=== PATIENT | female | born 1970 | race Caucasian/White ===

== ENCOUNTER 2017-03-04 12:22 | Emergency (ER) | payer OTHER ==
--- NOTE | 2017-03-04 12:47 | Emergency Department Record ---
History of Present Illness - General Chief Complaint: Shortness of breath Stated Complaint: ROSANGELA,COUGH Time Seen by Provider: 03/04/17 12:47 Source: Patient Mode of Arrival: Ambulatory Limitations: No limitations - History of Present Illness Initial Comments: The patient is here due to a one day hx of cough, congestion, and SOB for about 24 hours. She does have some upper chest pain with deep breaths and coughing. There is no reported fever, sputum production, AP, or ST. The patient just recently started up again with smoking but denies any other recent changes in her health. MD Complaint: Cough, Shortness of breath Onset/Timin -: Days(s) Improves With: Nothing Worsens With: Movement Associated Symptoms: Cough, Pain with inspiration Treatments Prior to Arrival: Bronchodilator - Related Data Home Oxygen Therapy: No Home Medications Medication Instructions Recorded Confirmed Last Taken Duloxetine HCl [Duloxetine HCl] 1 tab PO DAILY 02/01/16 03/04/17 03/03/17 Hydrocodone/Acetaminophen 5 mg PO DAILY 02/01/16 03/04/17 03/03/17 [Hydrocodon-Acetaminophen 5-325] Meloxicam [Meloxicam] 1 tab PO DAILY 02/01/16 03/04/17 03/03/17 Previous Rx's Medication Instructions Recorded Albuterol Sulfate [Proair Hfa] 2 puff IH QID PRN #1 inhaler 03/04/17 Levofloxacin [Levaquin] 750 mg PO DAILY #5 tab 03/04/17 Prednisone [Prednisone 20Mg] 40 mg PO DAILY #10 tab 03/04/17 Allergies Allergy/AdvReac Type Severity Reaction Status Date / Time No Known Drug Allergies Allergy Verified 03/04/17 12:32 Travel Screening - Travel/Exposure Within Last 30 Days Have you traveled within the last 30 days?: No Review of Systems Constitutional: Denies: Chills, Fever Eyes: Denies: Eye discharge ENT: Denies: Congestion Respiratory: Denies: Cough, Dyspnea Past Medical History - SOCIAL HISTORY Smoking Status: Current every day smoker Alcohol Use: None Drug Use: None - RESPIRATORY Hx Respiratory Disorders: No - CARDIOVASCULAR Hx Cardio Disorders: No - NEURO Hx Neuro Disorders: No - GI Hx GI Disorders: Yes Hx Hiatal Hernia: Yes - Hx Genitourinary Disorders: No - ENDOCRINE Hx Endocrine Disorders: Yes Hx Diabetes: No Hx Thyroid Disease: Yes - MUSCULOSKELETAL Hx Musculoskeletal Disorders: Yes Hx Arthritis: Yes - PSYCH Hx Psych Problems: Yes Hx Anxiety: Yes Hx Depression: Yes - HEMATOLOGY/ONCOLOGY Hx Hematology/Oncology Disorders: No Family Medical History Any Significant Family History?: No Physical Exam - General General Appearance: Alert, Oriented x3, Cooperative, No acute distress - Head Head exam: Atraumatic, Normocephalic, Normal inspection - Eye Eye exam: Normal appearance, PERRL - ENT Throat exam: Normal inspection. negative: Tonsillar erythema, Tonsillar exudate - Neck Neck exam: Normal inspection, Full ROM. negative: Tenderness - Respiratory Respiratory exam: Decreased breath sounds. negative: Normal lung sounds bilaterally, Chest wall tenderness, Respiratory distress, Rhonchi, Stridor, Wheezes - Cardiovascular Cardiovascular Exam: Regular rate, Normal rhythm, Normal heart sounds - GI/Abdominal GI/Abdominal exam: Soft, Normal bowel sounds. negative: Tenderness - Extremities Extremities exam: Normal inspection, Full ROM, Normal capillary refill. negative: Tenderness - Neurological Neurological exam: Alert, Normal gait. negative: Abnormal gait, Motor sensory deficit Course Vital Signs 03/04/17 12:24 Temperature 98.2 F Pulse Rate 91 H Respiratory 20 Rate Blood Pressure 118/77 Pulse Ox 97 - Reevaluation(s) Reevaluation #1: The patient is doing much better at this time. She is now moving air much better on auschultation. Her coughing seems to be worsening at times but she denies any CP. 03/04/17 14:07 Reevaluation #2: The patient is resting comfortably and states her ROSANGELA is improved. I did recommend hospital admission due to the bilateral pneumonia and intermittent wheezing on exam. I did discuss the risks of refusing the admission which include worsening pneumonia, ARDS, Respiratory Failure, Stroke, Disability and . The patient understands the risks and accepts the risks and understands we cannot be held liable for NOT admitting the patient to the hospital. Presently the patient has proper decision making capacity and fully understands her options. She is instructed to see her PCP tomorrow for recheck. 03/04/17 15:08 Medical Decision Making - Data Complexity MDM Data: Labs Ordered and/or Reviewed, X-Ray Ordered and/or Reviewed, EKG Ordered and/or Reviewed - Lab Data Result diagrams: 03/04/17 13:19 07/26/17 13:19 - EKG Data -: EKG Interpreted by Sd EKG: No Acute Changes, Normal EKG - Radiology Data Radiology results: Report reviewed (CXR: Bilateral perihilar infiltrates with COPD and possible small effusions. Chest CT: Bilateral pneumonia but no PE or Dissection.) Disposition Disposition: Discharge Clinical Impression: Pneumonia Qualifiers: Pneumonia type: due to unspecified organism Laterality: bilateral Lung location : unspecified part of lung Qualified Code(s): J18.9 - Pneumonia, unspecified organism Disposition: Against Medical Advice Condition: (1) Good Instructions: Pneumonitis (ED) Additional Instructions: Please use your inhaller and take your Abx as directed. Please continue the Prednisone tomorrow. Please see your PCP tomorrow for recheck. Return to the ER for any persistent or worsening cough, or any fever, or worsening shortness of breath. Prescriptions: Albuterol Sulfate [Proair Hfa] 2 puff IH QID PRN #1 inhaler PRN Reason: Cough And Difficulty Breathing Levofloxacin [Levaquin] 750 mg PO DAILY #5 tab Prednisone [Prednisone 20Mg] 40 mg PO DAILY #10 tab Forms: Patient Portal Access Time of Disposition: 15:14 Quality - Quality Measures Quality Measures: N/A - Blood Pressure Screening Blood Pressure Classification: Normal BP Reading Systolic Measurement: 119 Diastolic Measurement: 69 Screening for High Blood Pressure: < Normal BP, F/U Not Required > [G8783] Normal BP Follow-up Interventions: No follow-up required
[2017-03-04] MEDS ORDERED: IPRATROPIUM/ALBUTEROL (0.5MG/3MG) NEB INH ONE (12:53)
[2017-03-04] MEDS ORDERED: METHYLPREDNISOLONE PF 125MG/VIAL IVP ONE (12:56)
[2017-03-04 13:25] LABS: HEMATOCRIT 43.8 % (35.0-47.0); HEMOGLOBIN 14.5 gm/dl (11.6-16.0); MEAN CELL VOLUME 92.2 fl (81-97); MEAN CORPUSCULAR HEMOGLOBIN 30.5 pg (27-33); MEAN CORPUSCULAR HGB CONC 33.1 g/dl (32-36); PLATELET COUNT 264 K/uL (130-400); RED BLOOD COUNT 4.75 M/uL (3.80-5.40); RED CELL DISTRIBUTION WIDTH 12.9 % (11.5-14.5)
[2017-03-04 13:41] LABS: WHITE BLOOD COUNT W/O DIFF 20.2 K/uL (4.2-12.2)
[2017-03-04 13:42] LABS: INR 0.95; PARTIAL THROMBOPLASTIN TIME 28.9 SECONDS (24.5-39.1); PROTHROMBIN TIME (PATIENT) 10.3 SECONDS (9.5-12.1)
[2017-03-04 13:44] LABS: ANION GAP 11.9 (7-16); BLOOD UREA NITROGEN 13 mg/dL (7-17); CARBON DIOXIDE 24.1 mmol/L (22-30); CREATINE PHOSPHOKINASE 97 U/L (30-135); CREATININE 0.7 mg/dL (0.52-1.04); EST GLOMERULAR FILTRATION RATE > 60 ml/min; GLUCOSE,RANDOM 111 mg/dL (70-110)
[2017-03-04 13:45] LABS: D-DIMER 0.78 mg/L FEU (0-0.59)
[2017-03-04 13:56] LABS: CKMB 0.8 ug/L (0-6)
[2017-03-04] MEDS ORDERED: CEFTRIAXONE SODIUM 1 GM in 0.9 % SODIUM CHLORIDE 100ML 100 ML IVPB ONE (14:02)
[2017-03-04 14:16] LABS: TROPONIN I < 0.012 ng/mL (0.00-0.034)
[2017-03-04] MEDS ORDERED: ALBUTEROL SULFATE (0.083%) 2.5 MG/3 ML NEB INH ONE (14:40)
[2017-03-04] MEDS ORDERED: AZITHROMYCIN 500 MG in 0.9 % SODIUM CHLORIDE 250ML 250 ML IVPB ONE (14:53)
--- NOTE | 2017-03-05 08:25 | RADIOLOGY REPORT ---
EXAM: CHEST, TWO VIEWS HISTORY: COUGH. TECHNIQUE: Frontal and lateral views of the chest were obtained. Comparison: None. FINDINGS: The heart size is normal. There is underlying COPD. Patchy perihilar air space opacities worrisome for pneumonia. Small bibasilar effusions. No pneumothorax. IMPRESSION: COPD. PERIHILAR PNEUMONIA. SMALL BILATERAL EFFUSIONS. RECOMMEND FOLLOW-UP TO INSURE RESOLUTION. JOB NUMBER: [id number] MTDD
--- NOTE | 2017-03-05 08:31 | CT ANGIOGRAM REPORT ---
EXAM: CTA OF THE CHEST HISTORY: DYSPNEA. TECHNIQUE: CTA of the chest was performed following IV administration of 91 ml of Omnipaque 350 contrast. Axial images are obtained with coronal and sagittal MIP reconstructions. Comparison: None. FINDINGS: Bilateral breast prostheses are noted. The mediastinal vasculature enhances normally. Three is no intraluminal filling defect to suggest pulmonary embolus. Negative for thoracic aortic aneurysm or dissection. Small hiatal hernia. Limited evaluation of the upper abdomen is otherwise unremarkable. The heart and pericardium are unremarkable. Borderline enlarged hilar nodes bilaterally as well as a borderline enlarged subcarinal lymph node. These may be reactive. No pneumothorax. Extensive air space opacities bilaterally likely reflecting bilateral pneumonia. Findings most severely effect the upper lobes. IMPRESSION: 1. NEGATIVE FOR PULMONARY EMBOLUS, THORACIC AORTIC ANEURYSM, OR DISSECTION. 2. EXTENSIVE BILATERAL AIR SPACE OPACITIES, DESCRIBED ON CHEST X-RAY, CONSISTENT WITH PNEUMONIA. RECOMMEND FOLLOW-UP TO INSURE RESOLUTION. 3. SMALL BILATERAL EFFUSIONS. PROBABLE REACTIVE MEDIASTINAL AND HILAR ADENOPATHY. 4. SMALL HIATAL HERNIA. JOB NUMBER: [id number] [facility]
== END 2017-03-04 15:31 | disposition left against medical advice (07) ==
LOC: ER 12:22
DX: J18.9 Pneumonia, unspecified organism (principal); J44.9 Chronic obstructive pulmonary disease, unspecified; F17.210 Nicotine dependence, cigarettes, uncomplicated
CPT/HCPCS: 99284 ×2; 96374; 96375; 82550; 85730; 85610; 82553; 84484; 80048; 85379; 85027; 71020; 71275; 94640 ×2; 93005; 93010; Q9967; J2930; J7613

== ENCOUNTER 2017-03-06 14:57 | Emergency (ER) | payer OTHER ==
[2017-03-06] MEDS: IPRATROPIUM/ALBUTEROL (0.5MG/3MG) NEB INH ONE (15:15)
--- NOTE | 2017-03-06 15:39 | Emergency Department Record ---
History of Present Illness - General Chief Complaint: Difficulty Breathing Stated Complaint: ROSANGELA Time Seen by Provider: 03/06/17 15:16 Source: Patient Mode of Arrival: Ambulatory Limitations: No limitations - History of Present Illness Initial Comments: The patient is here due to a 3-4 day hx of cough, congestion and SOB. She was in the ER 2 days ago and was diagnosed with pneumonia and did leave AMA due to not wanting to be admitted. She now has a nebulizer at home and is on Prednisone and Levaquin but states she still feels SOB and did have a temp last night and this AM of about 100 in the ear. The patient did see her PCP yesterday and was sent home with the nebulizer. MD Complaint: Cough Onset/Timin -: Days(s) Consistency: Constant Improves With: Bronchodilators Worsens With: Exertion Associated Symptoms: Cough, Diaphoresis, Fever, Sputum production - Related Data Home Medications Medication Instructions Recorded Confirmed Last Taken Duloxetine HCl [Duloxetine HCl] 1 tab PO DAILY 02/01/16 03/06/17 03/06/17 Hydrocodone/Acetaminophen 5 mg PO DAILY 02/01/16 03/06/17 03/06/17 [Hydrocodon-Acetaminophen 5-325] Meloxicam [Meloxicam] 1 tab PO DAILY 02/01/16 03/06/17 03/06/17 Previous Rx's Medication Instructions Recorded Albuterol Sulfate [Proair Hfa] 2 puff IH QID PRN #1 inhaler 03/04/17 Levofloxacin [Levaquin] 750 mg PO DAILY #5 tab 03/04/17 Prednisone [Prednisone 20Mg] 40 mg PO DAILY #10 tab 03/04/17 Ipratropium/Albuterol [Duoneb] 3 ml IH Q4H #20 ampul.neb. 03/06/17 Allergies Allergy/AdvReac Type Severity Reaction Status Date / Time No Known Drug Allergies Allergy Verified 03/04/17 12:32 Travel Screening - Travel/Exposure Within Last 30 Days Have you traveled within the last 30 days?: No - Travel/Exposure Within Last Year Have you traveled outside the [place] in the last year?: No - Additonal Travel Details Have you been exposed to anyone with a communicable illness?: No - Travel Symptoms Symptom Screening: None Review of Systems Constitutional: Reports: Chills, Fever, Malaise Eyes: Denies: Eye discharge ENT: Reports: Congestion Respiratory: Reports: Cough, Dyspnea Cardiovascular: Denies: Arrhythmia, Chest pain Endocrine: Reports: Fatigue Past Medical History - SOCIAL HISTORY Smoking Status: Former smoker Alcohol Use: None Drug Use: None - RESPIRATORY Hx Respiratory Disorders: No - CARDIOVASCULAR Hx Cardio Disorders: No - NEURO Hx Neuro Disorders: No - GI Hx GI Disorders: Yes Hx Hiatal Hernia: Yes - Hx Genitourinary Disorders: No - ENDOCRINE Hx Endocrine Disorders: Yes Hx Diabetes: No Hx Thyroid Disease: Yes - MUSCULOSKELETAL Hx Musculoskeletal Disorders: Yes Hx Arthritis: Yes - PSYCH Hx Psych Problems: Yes Hx Anxiety: Yes Hx Depression: Yes - HEMATOLOGY/ONCOLOGY Hx Hematology/Oncology Disorders: No Family Medical History Any Significant Family History?: No Physical Exam - General General Appearance: Alert, Oriented x3, Cooperative, No acute distress - Head Head exam: Atraumatic, Normocephalic, Normal inspection - Eye Eye exam: Normal appearance, PERRL - ENT Throat exam: Normal inspection. negative: Tonsillar erythema, Tonsillar exudate - Neck Neck exam: Normal inspection, Full ROM. negative: Tenderness - Respiratory Respiratory exam: Normal lung sounds bilaterally. negative: Decreased breath sounds, Respiratory distress, Rhonchi, Wheezes - Cardiovascular Cardiovascular Exam: Regular rate, Normal rhythm, Normal heart sounds - GI/Abdominal GI/Abdominal exam: Soft, Normal bowel sounds. negative: Tenderness - Extremities Extremities exam: Normal inspection, Full ROM, Normal capillary refill. negative: Tenderness - Neurological Neurological exam: Alert, Normal gait. negative: Abnormal gait, Motor sensory deficit Course Vital Signs 03/06/17 03/06/17 15:00 15:18 Temperature 98.3 F Pulse Rate 78 88 Respiratory 24 18 Rate Blood Pressure 111/72 Pulse Ox 95 95 - Reevaluation(s) Reevaluation #1: The patient is doing much better at this time. She denies any SOB or ROSANGELA and her cough is improving. The patient's WBC is improved but her CXR is very slightly worse per Rad. On exam the patient's lungs are clear and she did not have any fever on recheck. I did discuss the case with the patient's PCP who saw her yesterday and she can also see her on Thursday. The patient is to continue her present course and to F/U with her PCP on Thursday as planned. 03/06/17 16:40 Medical Decision Making - Data Complexity MDM Data: Labs Ordered and/or Reviewed, X-Ray Ordered and/or Reviewed - Lab Data Result diagrams: 03/06/17 15:59 03/06/17 15:59 - Radiology Data Radiology results: Report reviewed (CXR: Slightly worsening of her bilateral pneumonia.) Disposition Disposition: Discharge Clinical Impression: Pneumonia Qualifiers: Pneumonia type: due to unspecified organism Laterality: unspecified laterality Lung location: unspecified part of lung Qualified Code(s): J18.9 - Pneumonia, unspecified organism Disposition: Home, Self-Care Condition: (1) Good Instructions: Dyspnea (ED) Additional Instructions: Please continue your medicines and use the Duoneb treatments as directed. Please see your PCP on Thursday as planned. Return to the ER for any increased cough, fever, trouble breathing or vomiting. Prescriptions: Ipratropium/Albuterol [Duoneb] 3 ml IH Q4H #20 ampul.neb. Forms: Patient Portal Access Time of Disposition: 16:46 Quality - Quality Measures Quality Measures: N/A - Blood Pressure Screening View Details: Yes Blood Pressure Classification: Normal BP Reading Systolic Measurement: 111 Diastolic Measurement: 72 Screening for High Blood Pressure: < Normal BP, F/U Not Required > [G8783] Normal BP Follow-up Interventions: No follow-up required
[2017-03-06 16:00] LABS: BASO % 0.1 % (0-6); EOS % 1.8 % (0-6); HEMATOCRIT 43.6 % (35.0-47.0); HEMOGLOBIN 14.4 gm/dl (11.6-16.0); MEAN CELL VOLUME 92.8 fl (81-97); MEAN CORPUSCULAR HEMOGLOBIN 30.6 pg (27-33); MEAN PLATELET VOLUME 9.7 fl (7.4-10.4); MONO % 4.1 % (0-9); PLATELET COUNT 302 K/uL (130-400); RED CELL DISTRIBUTION WIDTH 13.3 % (11.5-14.5); WHITE BLOOD COUNT W/O DIFF 14.7 K/uL (4.2-12.2)
[2017-03-06 16:12] LABS: BLOOD UREA NITROGEN 20 mg/dL (7-17); CREATININE 0.8 mg/dL (0.52-1.04); EST GLOMERULAR FILTRATION RATE > 60 ml/min; GLUCOSE,RANDOM 165 mg/dL (70-110)
[2017-03-06 16:26] LABS: C-REACTIVE PROTEIN 15.4 mg/dL (0.0-0.9)
--- NOTE | 2017-03-09 09:49 | RADIOLOGY REPORT ---
EXAM: CHEST, TWO VIEWS HISTORY: COUGH, WORSENING PNEUMONIA SYMPTOMS, LOW GRADE FEVER, WHEEZING, SHORTNESS OF BREATH. TECHNIQUE: PA and lateral views of the chest were obtained. Comparison: Two view chest 03/04/17. FINDINGS: The heart size is within normal limits. Slight progression in infiltrate in the right upper lobe inferiorly abutting the minor fissure. Slight increase in infiltrate in the left base as well. Persistent small bilateral pleural effusions blunting the posterior costophrenic angles also appearing slightly larger. Continued follow-up suggested. No pneumothorax evident. IMPRESSION: COMPARED TO THE PRIOR STUDY, SLIGHT INCREASE IN INFILTRATE IN THE INFERIOR ASPECT OF THE RIGHT UPPER LOBE AND LEFT BASE, AND ALSO SLIGHT INCREASE IN SMALL BILATERAL PLEURAL EFFUSIONS. CONTINUED FOLLOW-UP SUGGESTED. JOB NUMBER: [id number] [facility]
== END 2017-03-06 16:53 | disposition home or self-care (01) ==
LOC: ER 14:57
DX: J18.9 Pneumonia, unspecified organism (principal); R06.00 Dyspnea, unspecified; Z87.891 Personal history of nicotine dependence
CPT/HCPCS: 71020; 80048; 85027; 86140; 94640; 99283; 99284